=== PATIENT | female | born 1950 | race Two or more races ===

== ENCOUNTER → 2019-02-24 | Outpatient (CLI) | payer OTHER ==
[~2019-02-24] MED LIST: AMILODIPINE PO; ATORVASTATIN CA20 MG PO; COZAAR50 MG PO; GABAPENTIN300 MG PO; PLAVIX75 MG PO; PROTONIX40 M1 PO; ZANTAC150 M3 PO
== END | disposition home or self-care (01) ==
LOC: MAMO-SONO 08:44
DX: D05.11 Intraductal carcinoma in situ of right breast (principal)